=== PATIENT | male | born 1965 | race Asian ===

== ENCOUNTER 2023-11-12 06:54 | Day surgery (SDC) | payer OTHER ==
[~2023-11-12] VITALS: Ht 170.2 cm; Wt 95.3 kg
[2023-11-12] MEDS ORDERED: fentaNYL citrate 0.05 MG/ML VIAL ONE (07:20)
[2023-11-12] MEDS ORDERED: LIDOCAINE 2% 100 MG/5 ML UJET TP ONE (07:20)
[2023-11-12] MEDS ORDERED: fentaNYL citrate 0.05 MG/ML VIAL IVP ONE (08:30)
[2023-11-12] MEDS ORDERED: SIMETHICONE 40 MG/0.6 ML ONE (09:05)
== END 2023-11-12 09:05 | disposition home or self-care (01) ==
LOC: MDS 06:54 → MMU 06:55 → MDS 09:05
PROVIDERS: ATTEND Internal Medicine Gastroenterology
DX: Z08 Encounter for follow-up examination after completed treatment for malignant neoplasm (principal); R19.7 Diarrhea, unspecified; R97.0 Elevated carcinoembryonic antigen [CEA]; I10 Essential (primary) hypertension; Z85.038 Personal history of other malignant neoplasm of large intestine; Z79.899 Other long term (current) drug therapy; Z98.0 Intestinal bypass and anastomosis status
CPT/HCPCS: 45378; J3010

== ENCOUNTER 2024-01-11 17:07 | Inpatient (IN) | payer OTHER ==
[~2024-01-11] VITALS: Ht 170.2 cm; Wt 88.5 kg
[2024-01-11 17:15] VITALS: BP 129/86; PULSE 85; RESP 16; TEMP 98.1; O2SAT 95
[2024-01-11 20:24] LABS: BILIRUBIN,URINE 2+ (NEGATIVE); BLOOD, URINE NEGATIVE (NEGATIVE); COLOR,URINE DK. ORANGE (YELLOW); LEUKOCYTE ESTERASE ,URINE NEGATIVE (NEGATIVE); NITRITE, URINE NEGATIVE (NEGATIVE); PROTEIN,URINE 1+ (NEGATIVE); UGLUCOSE TRACE (NEGATIVE)
[2024-01-11 20:25] LABS: APPEARANCE,URINE SLIGHTLY HAZY (CLEAR)
[2024-01-11 20:28] LABS: ICTOTEST POSITIVE (NEGATIVE)
[2024-01-11 20:29] LABS: BACTERIA,URINE 1+ /HPF (None Seen); MUCUS,URINE None Seen /LPF (None Seen); RBC,URINE 0-5 /HPF (0-5); SQUAMOUS EPITHELIAL CELL,UR 0-3 (FEW) /LPF (0-3 (FEW)); WBC,URINE 0 /HPF (0-5)
[2024-01-11 20:42] LABS: BASOPHILS # (AUTO) 0.1 K/uL (0.00-0.22); BASOPHILS % (AUTO) 0.9 % (0.0-2.0); EOSINOPHILS # (AUTO) 0.3 K/uL (0-0.4); EOSINOPHILS % (AUTO) 4.4 % (0.0-4.0); HEMATOCRIT 35.5 % (36-52); HEMOGLOBIN 11.9 g/dL (12.0-18.0); LYMPHOCYTES # (AUTO) 1.1 K/uL (2.0-11.5); LYMPHOCYTES % (AUTO) 16.2 % (20.5-51.1); MEAN CORPUSCULAR HEMOGLOBIN 30 pg (27-31); MEAN CORPUSCULAR HGB CONC 34 g/dL (33-37); MEAN CORPUSCULAR VOLUME 89.9 fL (80-94); MONOCYTES # (AUTO) 0.5 K/uL (0.8-1.0); MONOCYTES % (AUTO) 7.8 % (1.7-9.3); NEUTROPHILS # (AUTO) 4.7 K/uL (1.8-7.7); NEUTROPHILS % (AUTO) 70.7 % (42.2-75.2); PLATELET COUNT (AUTO) 250 K/uL (140-450); RED BLOOD CELL COUNT(AUTO) 3.95 MIL/uL (4.20-6.10); RED CELL DISTRIBUTION WIDTH 15.3 % (11.6-13.7); WHITE BLOOD COUNT (AUTO) 6.6 K/uL (4.8-10.8)
[2024-01-11 21:07] LABS: ALBUMIN 3.1 g/dL (3.4-5.0); BILIRUBIN,DIRECT 3.3 mg/dL (0.0-0.3); TOTAL PROTEIN, SERUM 8.3 g/dL (6.4-8.2)
[2024-01-11 21:24] LABS: CALCIUM 8.9 mg/dL (8.5-10.1); CARBON DIOXIDE 26.9 mmol/L (21-32)
[2024-01-11 21:25] LABS: CREATININE 1.2 mg/dL (0.6-1.3)
[2024-01-11 21:31] LABS: POTASSIUM 2.9 mmol/L (3.5-5.1)
[2024-01-11] MEDS: POTASSIUM CHLORIDE 20% 40 MEQ/15 ML UDC PO ONE (23:58)
[2024-01-11] MEDS ORDERED: POTASSIUM CHLORIDE 20% 40 MEQ/15 ML UDC ONE (23:59)
[2024-01-12] MEDS ORDERED: LORazepam 2 MG/ML VIAL IVP PRN (02:25)
[2024-01-12] MEDS ORDERED: ACETAMINOPHEN 325 MG TAB PO PRN (02:25)
[2024-01-12] MEDS ORDERED: MORPHINE SULFATE 2 MG/ML SYR IVP PRN (02:25)
[2024-01-12] MEDS ORDERED: ONDANSETRON 4 MG/2 ML VIAL IVP PRN (02:25)
[2024-01-12] MEDS ORDERED: HYDROcodone/APAP 5/325 MG 1 TAB TAB PO PRN (02:25)
[2024-01-12] MEDS: NACL 0.9% 1,000 ML IV SCH (02:25)
[2024-01-12] MEDS: NACL 0.9% 1,000 ML IV ONE (03:10)
[2024-01-12] MEDS: KCL 20 MEQ IN 100 mL PREMIX 100 ML IV ONE (03:10)
[2024-01-12] MEDS ORDERED: CARV3.12 PO (06:34)
[2024-01-12] MEDS ORDERED: APIX5TAB PO (06:38)
[2024-01-12] MEDS ORDERED: DOCU-299 PO (06:38)
[2024-01-12] MEDS ORDERED: FURO40TA9 PO (06:40)
[2024-01-12] MEDS ORDERED: FLUO10CA21 PO (06:40)
[2024-01-12 09:35] LABS: INR 0.97 (0.8-1.2); PARTIAL THROMBOPLASTIN TIME 26.2 secs (22-35.6); PROTHROMBIN TIME 10.2 secs (10.8-13.4)
[2024-01-12 10:30] VITALS: BP 130/80; PULSE 81; PULSE 82; RESP 18; TEMP 98.7; O2SAT 97; O2SAT 98
[2024-01-12 20:00] VITALS: BP 144/97; PULSE 80; RESP 18; TEMP 97.5; O2SAT 97
[2024-01-13 04:00] VITALS: BP 149/94; PULSE 74; RESP 18; TEMP 98.3; O2SAT 96
[2024-01-13 05:47] LABS: BASOPHILS # (AUTO) 0.1 K/uL (0.00-0.22); EOSINOPHILS # (AUTO) 0.4 K/uL (0-0.4); HEMATOCRIT 32.1 % (36-52); LYMPHOCYTES # (AUTO) 1.3 K/uL (2.0-11.5); LYMPHOCYTES % (AUTO) 20.9 % (20.5-51.1); MEAN CORPUSCULAR HEMOGLOBIN 31 pg (27-31); MEAN CORPUSCULAR HGB CONC 34 g/dL (33-37); MONOCYTES # (AUTO) 0.5 K/uL (0.8-1.0); MONOCYTES % (AUTO) 8.8 % (1.7-9.3); NEUTROPHILS # (AUTO) 3.9 K/uL (1.8-7.7); NEUTROPHILS % (AUTO) 63.3 % (42.2-75.2); PLATELET COUNT (AUTO) 205 K/uL (140-450); RED BLOOD CELL COUNT(AUTO) 3.57 MIL/uL (4.20-6.10); RED CELL DISTRIBUTION WIDTH 15.8 % (11.6-13.7); WHITE BLOOD COUNT (AUTO) 6.1 K/uL (4.8-10.8)
[2024-01-13 06:17] LABS: ALBUMIN 2.7 g/dL (3.4-5.0); ANION GAP 11.1 (8-16); CALCIUM 8.8 mg/dL (8.5-10.1); CARBON DIOXIDE 27.4 mmol/L (21-32); CREATININE 0.9 mg/dL (0.6-1.3); MAGNESIUM 1.9 mg/dL (1.8-2.4); POTASSIUM 3.5 mmol/L (3.5-5.1); TOTAL BILIRUBIN 3.5 mg/dL (0.0-1.0); TOTAL PROTEIN, SERUM 7.1 g/dL (6.4-8.2)
[2024-01-13 12:00] VITALS: BP 128/82; PULSE 78; RESP 18; TEMP 98.5; O2SAT 98
[2024-01-13 20:00] VITALS: BP 135/95; PULSE 78; RESP 16; TEMP 97.7; O2SAT 97
[2024-01-14 04:00] VITALS: BP 127/82; PULSE 80; RESP 16; TEMP 97.6; O2SAT 98
[2024-01-14] MEDS ORDERED: fentaNYL citrate 0.05 MG/ML VIAL ONE (11:19)
[2024-01-14] MEDS ORDERED: MIDAZOLAM 5 MG/1 ML VIAL ONE (11:19)
[2024-01-14] MEDS ORDERED: LIDOCAINE MPF 1% 5 ML ONE ×2 (11:23→12:21)
[2024-01-14 16:14] VITALS: BP 125/85; PULSE 65; RESP 20; TEMP 97.1
[2024-01-26] MEDS ORDERED: FLUO10CA21 PO (15:35)
[2024-01-26] MEDS ORDERED: CARV3.12 PO (15:35)
[2024-01-26] MEDS ORDERED: FURO40TA9 PO (15:35)
[2024-01-26] MEDS ORDERED: DOCU-299 PO (15:35)
[2024-01-26] MEDS ORDERED: APIX5TAB PO (15:35)
== END 2024-01-14 16:44 | disposition home or self-care (01) | DRG 281 ==
LOC: MED 17:07 → MMU 01-12 02:29 → MTU 01-12 09:16
PROVIDERS: ADMIT Student in an Organized Health Care Education/Training Program; ATTEND Student in an Organized Health Care Education/Training Program
PROC: 0FB13ZX Excision of Right Lobe Liver, Percutaneous Approach, Diagnostic (ICD-10-PCS; principal; 2024-01-14)
DX: C22.8 Malignant neoplasm of liver, primary, unspecified as to type (principal); R64 Cachexia; E44.1 Mild protein-calorie malnutrition; R17 Unspecified jaundice; E87.6 Hypokalemia; E86.1 Hypovolemia; E80.6 Other disorders of bilirubin metabolism; I10 Essential (primary) hypertension; Z85.038 Personal history of other malignant neoplasm of large intestine; Z68.30 Body mass index [BMI] 30.0-30.9, adult
CPT/HCPCS: 36415; 47000; 76942; 80048; 80053; 80076; 81001; 82150; 83690; 83735; 85025; 85610; 85730; 87081; 87086; 99285; J1644; J2001; J2250; J3010; J3480; Q0092; Q9967